=== PATIENT | female | born 1960 | race Caucasian/White ===

== ENCOUNTER 2019-04-15 13:20 | Emergency (ER) | payer MEDICARE ==
[~2019-04-15] VITALS: Ht 167.6 cm; Wt 60.0 kg
[2019-04-15 13:25] VITALS: TEMP 98.2
[2019-04-15 15:16] LABS: ALANINE AMINOTRANSFERASE 25 U/L (9-52); ALKALINE PHOSPHATASE 61 U/L (50-136); ANION GAP 3 mmol/L (7-16); AST,SGOT 28 U/L (15-37); BILIRUBIN,TOTAL 0.2 mg/dL (0.0-1.0); BLOOD UREA NITROGEN 10 mg/dL (7-17); CALCIUM 7.8 mg/dL (8.4-10.2); CARBON DIOXIDE 29 mmol/L (22-30); CHLORIDE 108 mmol/L (98-107); CREATININE, serum 0.56 (0.52-1.25); GLUCOSE 80 mg/dL (74-106); LIPASE 94 U/L (23-300); POTASSIUM 3.8 mmol/L (3.4-5.0); SODIUM 140 mmol/L (137-145); TOTAL PROTEIN 5.8 gm/dL (6.4-8.2)
[2019-04-15 15:25] LABS: C-REACTIVE PROTEIN < 0.5 mg/dL (0.0-0.9)
[2019-04-15 15:28] LABS: BASO % 0.8 % (0.0-2.0); EOS # 0.1 (0.0-0.7); EOS % 2.8 % (0-4.0); GRAN # 1.7 (1.4-6.5); GRAN % 47.5 % (42.2-75.2); LYMPH # 1.4 (1.2-3.4); LYMPH % 39.5 % (20.0-51.0); MEAN CELL VOLUME 77 fl (80.0-100.0); MEAN CORPUSCULAR HGB CONC 29 g/dl (33.0-37.0); MEAN PLATELET VOLUME 9.7 fl (7.4-10.4); MONO # 0.3 (0.1-0.6); MONO % 9.4 % (1.7-9.3); PLATELET COUNT 166 K/mm3 (130-400); RED BLOOD COUNT 3.57 M/mm3 (4.10-5.30); REDCELL DISTRIBUTION WIDTH-CV 15.4 % (11.5-14.5)
[2019-04-15 15:29] LABS: HEMATOCRIT 27.5 % (37.0-47.0); MEAN CORPUSCULAR HEMOGLOBIN 22 pg (27.0-31.0)
[2019-04-15 15:30] LABS: COLLECTION METHOD CLEAN CATCH
[2019-04-15 15:40] LABS: MUCOUS Present /lpf; PH 7 (5-8); URINE APPEARANCE Clear; URINE BACTERIA Rare /hpf; URINE BILIRUBIN Negative (NEGATIVE); URINE BLOOD Negative (NEGATIVE); URINE COLOR Straw; URINE GLUCOSE Negative (NEGATIVE); URINE KETONE Negative (NEGATIVE); URINE LEUKOCYTE ESTERASE Trace (NEGATIVE); URINE NITRATE Negative (NEGATIVE); URINE PROTEIN(semi-quant) Negative (NEGATIVE); URINE RBC 0-2 /hpf; URINE UROBILINOGEN Negative (NEGATIVE)
[2019-04-15 17:17] VITALS: BP 105/51; PULSE 68
== END 2019-04-15 17:17 | disposition home or self-care (01) ==
LOC: COL.ER 13:20
PROVIDERS: Emergency Medicine
DX: K83.1 Obstruction of bile duct (principal); Z90.49 Acquired absence of other specified parts of digestive tract
CPT/HCPCS: J1630; J2270; J2550; J7030; Q9967

== ENCOUNTER → 2019-05-18 | Outpatient (CLI) | payer MEDICARE | LOC: COL.RAD 07:09 | DX: T14.8XXA Other injury of unspecified body region, initial encounter (principal); D64.9 Anemia, unspecified; K59.00 Constipation, unspecified; K62.5 Hemorrhage of anus and rectum; B18.2 Chronic viral hepatitis C; R93.5 Abnormal findings on diagnostic imaging of other abdominal regions, including retroperitoneum | CPT/HCPCS: A9585 ==